=== PATIENT | male | born 1945 | race African-American/Black ===

== ENCOUNTER 2020-04-05 04:13 | Emergency (ER) | payer MEDICARE ==
[~2020-04-05] VITALS: Ht 172.7 cm; Wt 66.0 kg
[2020-04-05 05:24] LABS: CHLORIDE 107 mEq/L (98-107)
[2020-04-05 05:25] LABS: BASOPHILS % 0.9 % (0.0-2.0); EOSINOPHILS % 2.3 % (0.0-5.0); HEMATOCRIT. 37.5 % (42.0-52.0); HEMOGLOBIN. 12.1 g/dL (14.0-18.0); MEAN CORPUSCULAR HEMOGLOBIN 29.2 pg (28.0-32.0); MEAN CORPUSCULAR VOLUME 90.7 fL (80.0-94.0); MEAN PLATELET VOLUME 7.4 fl (7.4-10.4); MONOCYTES % 9.8 % (2.0-8.0); PLATELET 252 x1000/uL (130-400); RED BLOOD CELL COUNT 4.14 mill/uL (4.7-6.1); RED CELL DISTRIBUTION WIDTH 18.6 % (11.6-14.6)
[2020-04-05 07:16] VITALS: BP 128/79
== END 2020-04-05 07:16 | disposition home or self-care (01) ==
LOC: ER 04:13
DX: M25.532 Pain in left wrist (principal); M25.521 Pain in right elbow; M54.89 Other dorsalgia; G89.29 Other chronic pain; N40.0 Benign prostatic hyperplasia without lower urinary tract symptoms; W01.0XXA Fall on same level from slipping, tripping and stumbling without subsequent striking against object, initial encounter; Z91.81 History of falling; Y93.89 Activity, other specified; Y92.018 Other place in single-family (private) house as the place of occurrence of the external cause
CPT/HCPCS: 36415; 72100; 73070; 73110; 80048; 85025; 93005; 99285